=== PATIENT | male | born 1980 | race Caucasian/White ===

== ENCOUNTER 2019-10-13 06:32 | Emergency (ER) | payer OTHER ==
[~2019-10-13] VITALS: Ht 172.7 cm; Wt 93.0 kg
[2019-10-13 06:37] VITALS: Ht 172.7 cm; Wt 93.0 kg
[2019-10-13 07:29] VITALS: BP 144/94
== END 2019-10-13 07:29 | disposition home or self-care (01) ==
LOC: ED 06:32
DX: L03.115 Cellulitis of right lower limb (principal)
CPT/HCPCS: J7512

== ENCOUNTER 2020-05-16 15:14 | Emergency (ER) | payer OTHER ==
[~2020-05-16] VITALS: Ht 170.2 cm; Wt 94.3 kg
[2020-05-16 15:20] VITALS: BP 177/113; Ht 170.2 cm; Wt 94.3 kg
== END 2020-05-16 17:26 | disposition left against medical advice (07) ==
LOC: ED 15:14
DX: Z53.21 Procedure and treatment not carried out due to patient leaving prior to being seen by health care provider (principal)